=== PATIENT | female | born 1995 | race Caucasian/White ===

== ENCOUNTER → 2018-03-06 21:16 | Outpatient (CLI) | payer MEDICAID, SELFPAY ==
[2018-03-06 21:26] LABS: Absolute Lymphocyte Count 1.11 X10^3/ul (0.83-4.51); Absolute Neutrophil Count 1.9 X10^3/uL (2.0-7.7); Basophil# 0.02 X10^3/uL; Basophil% 0.6 % (0-1); Eosinophil# 0.01 X10^3/uL; Eosinophils% 0.3 % (0-5); Hematocrit 39.3 % (37-47); Hemoglobin 12.3 g/dl (12.0-15.0); Lymphocyte # 1.11 X10^3/ul (4.0); Lymphocyte % 31.7 % (19-41); Mean Corp Hgb Conc 31.3 g/gl (32-36); Mean Corpuscular Hgb 25.7 pg (27.0-32.0); Mean Platelet Vol. 10.6 fl (6.2-12.0); Monocyte# 0.42 X10^3/uL; Neutrophil # 1.94 X10^3/uL (2.7-7.7); Neutrophil % 55.4 % (47-70); Platelet Count 210 K/mm3 (150-450); RBC Distribution Width CV 13.9 % (11.6-14.6); RBC Distribution Width SD 41.4 fl (35.1-43.9); Red Blood Count 4.79 M/mm3 (4.2-5.4); White Blood Count 3.5 K/mm3 (4.4-11.0)
[2018-03-06 21:29] LABS: POSITIVE COUNT NO; POSITIVE DIFFERENTIAL NO; POSITIVE MORPHOLOGY NO
[2018-03-06 22:09] LABS: ALB/GLOB Ratio 1.1 RATIO (0.9-2.4); AST(SGOT) 20 U/L (15-37); Alanine Aminotransfer ALT/SGPT 34 U/L (13-56); Alkaline Phosphatase 51 U/L (45-117); Anion Gap 6 (5-15); BUN 12 mg/dL (7-18); Calcium,Total 8.8 mg/dL (8.5-10.1); Chloride 109 mmol/L (98-107); Creatinine, Serum 0.75 mg/dL (0.55-1.02); EST Glomerular Filtration Rate 104 mL/min (>60); Est Glom Filt Rate - Afr Amer 126 mL/min (>60); Globulin 3.7 g/dL (2.2-4.2); Glucose 87 mg/dL (74-106); Potassium 4.1 mmol/L (3.5-5.1); Protein, Total 7.7 g/dL (6.4-8.2); Sodium Level 141 mmol/L (136-145); T4 Free Direct 1.02 ng/dL (0.76-1.46); Thyroid Stim Hormone (TSH) 1.68 uIU/mL (0.358-3.74)
== END ==
PROVIDERS: Visit Provider Nurse Practitioner
DX: F32.9 Major depressive disorder, single episode, unspecified (principal); F41.9 Anxiety disorder, unspecified
CPT/HCPCS: 80053; 84439; 84443; 84481; 85025

== ENCOUNTER 2018-03-17 09:00 | Outpatient (RCR) | payer MEDICAID, SELFPAY ==
--- NOTE | 2018-03-17 09:05 | BH.SGPN.GN ---
Behaviors/Verbalizations/Mental Status: [Client maintained fair eye contact, appearance disheveled unbathed, motor activity slowed, speech normal rate and soft tone, mood anxious, dysthymic, congruent affect, thoughts linear and intact, no evidence of delusions or hallucinations.] Client Response/Progress/Benefit: [Attentive and providing input to discussion despite reports of being exhausted. Emotion for today is blah as client reports she worked multiple shifts over the weekend with little break and was therefore unable to spend much time with her daughter. Client reports that she feeling overwhelmed and unsupported as she does not have many people to help with her daughter. Stated that she has ?no time to relax or sleep? and is really feeling the effects of this. Group provided support and encouragement which client appeared to benefit from. Limited progress as she reports increasing work hours despite indicating difficulties in managing current responsibilities Continue treatment to prevent decompensation and improve self-care skill application.] Narrative Note: []
--- NOTE | 2018-03-17 10:25 | BH.SGPN.GN ---
Behaviors/Verbalizations/Mental Status: [] Pt eye contact good, casually dressed, motor activity appropriate, speech normal rate and tone, mood anxious, congruent affect, thoughts linear and intact, no evidence of delusions or hallucinations. Client Response/Progress/Benefit: []Pt quiet, listened attentively to others, only contributed to discussion if elicited by therapist. Pt appeared to connect with other peers comments about challenges with following through with goals, despite knowing setting goals is important AEB pt nodding head. Pt stated she struggles with accomplishing goals because of self-doubt and low confidence. Pt appeared engaged when learning about SMART goals as shown by pt taking notes. pt seemed to benefit from rehearsing setting small goals in the moment, appeared to connect importance of setting realistic goals. Narrative Note: []
--- NOTE | 2018-03-20 09:04 | BH.SGPN.GN ---
Behaviors/Verbalizations/Mental Status: [] Pt eye contact poor, casually dressed, motor activity restless, speech soft, mood depressed and anxious, flat affect, thoughts linear and intact, no evidence of delusions or hallucinations. Reviewed client?s symptom tracker, no signs of suicidal ideation, plan, or intent as of today. Client Response/Progress/Benefit: []Client stated can I pass on sharing this morning. Client did identify her emotion to be stressed, but did not elaborate on what was contributing to her emotion. Client did appear to listen attentively to others throughout session. Seemed to benefit from support from peers. Progress could be hindered if continues to not communicate what she is feeling and thinking. Client to continue IOP level of care to decrease depression, improve daily functioning, and prevent decompensation. Narrative Note: []
--- NOTE | 2018-03-20 10:08 | BH.SGPN.GN ---
Behaviors/Verbalizations/Mental Status: [Client maintained good eye contact, casually dressed appearing unbathed and tired, motor activity appropriate, speech normal rate and soft tone, mood depressed, anxious, affect congruent, thoughts linear and logical, no evidence of delusions or hallucinations.] Client Response/Progress/Benefit: [Client responded well to session, attentive throughout ad able to provide to both discussion and activity portions of group. Client appeared to connect with the topic of ?taking action? and discussed waning to be able to feel as though her depression has less of an impact on her life. Client identified things in her life that are holding her back from moving towards mental wellness such as poor self-esteem, lack of emotion, getting her hopes up, poor sleep, and negative thinking. Client stated she wants to take back control over these stressors and symptoms because she wants to be able to learn to love herself more and set a good example for her baby daughter. Client appeared to benefit from identifying stressors and symptoms holding her back and participating in a symbolic activity, AEB increased input and engagement. Client to continue IOP to continue increasing use of thought challenging and communication with supports, as well as to prevent decompensation.] Narrative Note: []
--- NOTE | 2018-03-21 10:39 | BH.NA ---
Physical Data - Vital Signs Pulse Rate: 68 Respiratory Rate: 12 Blood Pressure: 106/70 - Height/Weight Height: 1.63 m Weight:: 58.967 kg Weight in Pounds: 130.0 lbs Current Medication Compliance - Medication Compliance Do you take your medication as prescribed?: Yes Do you need assistance with taking medication?: No Have you had side effects from medication?: No Nutritional History - Appetite Nutritional Instructions:: If client shows signs of a swallowing problem, weight change of 10 pounds or more in the last month, or is on a diabetic diet, the physician will review and request a dietitian consult, as appropriate. All unintentional weight loss will be referred to the physician for decision on need for dietitian consult. Describe your appetite:: Fair Have you noticed a change in your eating habits lately?: Yes - appetite is variable and dependent on work schedule and sleep Functional Assessment - Sleep Pattern Describe any problems with sleeping: Client works 2nd shift and has an . She tries to sleep when the baby does, but due to her work schedule, it is difficult to stay asleep for long periods of time. - Activities Motor Activity:: Functional Sensory/Communication Assess - Hearing Problems Do you have any hearing problems?: Adequate - Communication Problems Do you have difficulty understanding what people are saying?: No Do you have trouble putting your thoughts into words or expressing what you want to say?: No Do people ever have trouble understanding what you say?: No What is your primary language?: [place] Learning Assessment - Learning Barriers Learning Barriers:: Ready to learn Medical Problems/History - Pain Assessment Do you have acute or chronic pain?: No - Female Reproductive Do you think you may be ?: No Number of pregnancies:: 1 Number of children:: 1 Have you reached menopause?: No Do you have any history of breast disease?: No - Family History Family History: Family History (Last Reviewed 03/15/18 @ 11:22 by GORDON Bueno) Sister Bipolar 1 disorder, manic, mild Grandfather Bipolar 1 disorder, manic, mild Other Depression Diabetes Heart disease Mental Status Summary - Mental Status Significant Findings/Observations on Appearance and Mood:: Dayan is A&O x4, cooperative with interview, and is casually dressed. She makes good eye contact. Normal activity. Speech is clear and of normal rate and volume. Mild depression and anhedonia. Mood congruent affect. Logical associations and normal process. No symptoms of delusions. Denies SI, HI, and hallucinations. Passive thoughts of . Good attention and concentration. Suicide Assessment - Suicidal Ideation Are you currently or have you been suicidal in the past?: Yes Suicidal Intentional Rating Scale (SIRS): Suicidal thoughts (past) Physician Notification: If Active suicidal thoughts/Will not contract for safety is checked, contact physician and document in the Physician Notification section below. Past Psychiatric History - MH Treatment Hx Describe (age, circumstance, etc) any past hospitalizations: age 14 Fall Risk Assessment - Age Age: Less than 60 - Mental Status Mental Status: Willing & able to ask for assistance when needed - Physical Status Physical Status: No problems - Impairments Impairments: None - Elimination Elimination: Continent AND independent - Gait or Balance Gait or Balance: Walks independently - Hx of Falls History of falls in the past 6 months: No known history - Medications/Substances Psychotropics:: Antidepressants Medications/substances used within the past 24 hours or ordered to administer: 1-2 of the medications/substances listed above - Total Score Total Points:: 1 Physician Notification - Physician Notification Physician Notified: Yanira Beach Method of Notification: Face to Face Comments: treatment planning recommendations RN Summary of Impressions - Impressions Recommendations: Include psychiatric and medical issues, treatment planning recommendations, and discharge planning needs. - Level of Care How do the client's current symptoms and functional deficits support need for this level of care?: Client presents to IOP with increased symptoms of her depression that are affecting her ADL's. She does have a significant history of MDD and has had SA x4. Client had a baby girl in October 2017. She endorses sleep problems, stress about her job, finances, and housing. Client specifically denies any SI and inclination to harm her baby, but she is having passive thoughts of . IOP will provide her socialization and support to promote gains and prevent further decompensation.
--- NOTE | 2018-03-21 11:36 | BH.NA_ITS ---
Physical Data - Vital Signs Pulse Rate: 68 Respiratory Rate: 12 Blood Pressure: 106/70 - Height/Weight Height: 1.63 m Weight:: 58.967 kg Weight in Pounds: 130.0 lbs Current Medication Compliance - Medication Compliance Do you take your medication as prescribed?: Yes Do you need assistance with taking medication?: No Have you had side effects from medication?: No Nutritional History - Appetite Nutritional Instructions:: If client shows signs of a swallowing problem, weight change of 10 pounds or more in the last month, or is on a diabetic diet, the physician will review and request a dietitian consult, as appropriate. All unintentional weight loss will be referred to the physician for decision on need for dietitian consult. Describe your appetite:: Fair Have you noticed a change in your eating habits lately?: Yes - appetite is variable and dependent on work schedule and sleep Functional Assessment - Sleep Pattern Describe any problems with sleeping: Client works 2nd shift and has an . She tries to sleep when the baby does, but due to her work schedule, it is di fficult to stay asleep for long periods of time. - Activities Motor Activity:: Functional Sensory/Communication Assess - Hearing Problems Do you have any hearing problems?: Adequate - Communication Problems Do you have difficulty understanding what people are saying?: No Do you have trouble putting your thoughts into words or expressing what you want to say?: No Do people ever have trouble understanding what you say?: No What is your primary language?: Citizen Of [place] Learning Assessment - Learning Barriers Learning Barriers:: Ready to learn Medical Problems/History - Pain Assessment Do you have acute or chronic pain?: No - Female Reproductive Do you think you may be ?: No Number of pregnancies:: 1 Number of children:: 1 Have you reached menopause?: No Do you have any history of breast disease?: No - Family History Family History: Family History (Last Reviewed 03/15/18 @ 11:22 by GORDON Bueno) Sister Bipolar 1 disorder, manic, mild Grandfather Bipolar 1 disorder, manic, mild Other Depression Diabetes Heart disease Mental Status Summary - Mental Status Significant Findings/Observations on Appearance and Mood:: Dayan is A&O x4, cooperative with interview, and is casually dressed. She makes good eye contact. Normal activity. Speech is clear and of normal rate and volume. Mild depression and anhedonia. Mood congruent affect. Logical associations and normal process. No symptoms of delusions. Denies SI, HI, and hallucinations. Passive thoughts of . Good attention and concentration. Suicide Assessment - Suicidal Ideation Are you currently or have you been suicidal in the past?: Yes Suicidal Intentional Rating Scale (SIRS): Suicidal thoughts (past) Physician Notification: If Active suicidal thoughts/Will not contract for safety is checked, contact physician and document in the Physician Notification section below. Past Psychiatric History - MH Treatment Hx Describe (age, circumstance, etc) any past hospitalizations: age 14 Fall Risk Assessment - Age Age: Less than 60 - Mental Status Mental Status: Willing & able to ask for assistance when needed - Physical Status Physical Status: No problems - Impairments Impairments: None - Elimination Elimination: Continent AND independent - Gait or Balance Gait or Balance: Walks independently - Hx of Falls History of falls in the past 6 months: No known history - Medications/Substances Psychotropics:: Antidepressants Medications/substances used within the past 24 hours or ordered to administer: 1-2 of the medications/substances listed above - Total Score Total Points:: 1 Physician Notification - Physician Notification Physician Notified: Yanira Beach Method of Notification: Face to Face Comments: treatment planning recommendations RN Summary of Impressions - Impressions Recommendations: Include psychiatric and medical issues, treatment planning recommendations, and discharge planning needs. - Level of Care How do the client's current symptoms and functional deficits support need for this level of care?: Client presents to [facility] with increased symptoms of her depression that are affecting her ADL's. She does have a significant history of MDD and has had SA x4. Client had a baby girl in October 2017. She endorses sleep problems, stress about her job, finances, and housing. Client specificall y denies any SI and inclination to harm her baby, but she is having passive thoughts of . [facility] will provide her socialization and support to promote gains and prevent further decompensation.
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
--- NOTE | 2018-03-21 12:47 | BH.DR.ITP ---
Initial Treatment Plan - Patient Information Visit Information: ADMISSION DATE: EXPECTED LOS: 4-6 weeks Diagnoses:: Major depressive disorder recurrent severe. PTSD - Problems/Symptoms Problem #1:: Depression/ mood sxs Symptom:: Sad mood, anhedonia, difficulty concentrating, biologic disruption of sleep and appetite, suicidal ideation Problem #2:: Anxiety Symptom:: Rumination, intrusive traumatic memories, avoidance
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
--- NOTE | 2018-03-21 15:12 | BH.MDN ---
Multi-Disciplinary Note - Note 45-min Individual Time Started:: 11:11 Date: 03/21/18 Purpose of session/treatment goals addressed:: The purpose of this session was to determine how Client has been adjusting to group following her first two days in IOP tx as well as begin establishing rapport. Another goal was to assess Client perception of current stressors, symptoms, supports, and means for coping, as well as work with client on beginning to establish treatment goals. Eye Contact:: Good Motor Activity:: Appropriate Appearance:: Casual Speech:: Appropriate, Soft Mood:: Anxious, Dysthymic Affect:: Congruent Thoughts:: Linear, Logical, No evidence of hallucinations/delusions noted Staff Interventions:: The purpose of this session was to determine how Client has been adjusting to group following her first two days in IOP tx as well as begin establishing rapport. Another goal was to assess Client perception of current stressors, symptoms, supports, and means for coping, as well as work with client on beginning to establish treatment goals. Client Response:: Client open to meeting with this therapist and responded well to session. She shared that initially the group environment was a bit overwhelming as she has never been to more than one counseling session in her life. Client further noted feeling she will be able to gain important skills and is beginning to feel more comfortable now that she has started to adjust and knows what to expect. Client discussed feeling exhausted today explaining that she has been struggling to find any downtime to relax since returning to work. Client indicated that between caring for her daughter and working two jobs she barely has anytime to do much more than sleep. She discussed stressors related to both occupational stress and difficulties in having a . CLient identified that although her boyfriend and his mother are very supportive, she struggles with feeling anxious when she is away from her daughter. Client shared recently getting a new head knitting machine fixer due to not trusting her previous sitter, CLient's non-biological aunt, to care for her daughter. She went on to describe experiencing frequent worry and panic related symptoms during times she is away from her daughter which has caused some difficulties in remaining focused while at work. When asked about current means for managing stressors or coping with frustrations, Client shared I don't...I just push everything down and pretend like nothing is wrong. She reflected that this has begun to negatively impact her mental and emotional health and wellbeing and verbalized allowing her stressors to continue to build until I snap. CLient was upon to discussing potential treatment goals with this therapist and identified improving boundaries, increasing self-care, and developing anxiety and stress management coping skills as her main priorities at this time. Risks/Concerns:: No risks or concerns noted. Client denies any active SI, plan, or intent as of this date 03/21/18. Progress Toward Goals/Plan:: Client second day in IOP program, therefore minimal progress able to be made. She expressed some apprehension however is hopeful that she will be able to gains the skills needed for successful improvement in management of mental health symptoms. Client was able to work with therapist on identifying potential treatment goals and indicated wanting to focus on coping skill development and managing current stressors. Recommended continued IOP to began prevent decompensation, and increase insight into mental health symptoms and healthy coping mechanisms. Time Stopped:: 12:00
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
--- NOTE | 2018-04-03 15:41 | BH.MTP_ITS ---
Master Treatment Plan - Patient Information Program Physician:: Monica Beach Primary Therapist:: VISH Su - Psychiatric Diagnoses Psychiatric Diagnoses:: Major depressive disorder recurrent severe. PTSD Diagnosis Code(s):: F33.2, F43.1 - Estimated LOS Estimated LOS (in weeks):: 6 Problem/Goal #1 - Problem/Goal #1 Stated Goal:: Client will decrease depressive symptoms, isolation, agitation, and passive suicidal ideation due to Major Depressive Disorder through Intensive Outpatient Program. Description of Barriers: Client has a significant trauma hx and reports no previous mental health treatment, she additionally reports increased responsibilities associated with work and caring for her daughter, CLient is 5 months and indicates experiencing significant anxiety and depression since giving , she has limited support, limited healthy coping skills in place, reports little time for self related to difficulty prioritizing , and multiple psychosocial stressors including financial, occupational, and family stress. Functional Impact: Client reports that recent increases in passive thoughts of and intrusive thoughts causing anxiety impact her on a daily basis. Depression leads to increased isolation, anhedonia, and lack self-care. Client reports poor concentration and increased rumination impacting her ability to function at work and resulting in increased isolation and avoidance. Goal Relevant Strengths/Supports: Client is intelligent, resilient, has a good sense of humor, and is open to trying new strategies for managing mental health symptoms. She reports strong motivation to improve current means of coping and better manage mental health symptoms. Client reports her boyfriend and his family are supportive and are her biggest sources of motivation. - Objectives Objective #1 Stated Objective: Client will identify at least 2 warning signs and triggers leading to increased depressive thinking and passive SI, as well as will identify and replace 2-3 negative thinking patterns that mediate feelings of hopelessness and helplessness. Client will additionally identify 3-4 coping skills to use to help avoid suicidal thoughts/ideation. Interventions: Therapist will help client apply group concepts to help client better understand self, as well as ability to cope with everyday challenges and struggles, and communicate needs more effectively with supports. Therapist will also provide client with education on cognitive distortions, mistaken beliefs, and identifying and combating negative self-talk. Therapist will help pt. explore connection between thoughts, feelings, and actions. Discharge Criteria: Client will be able to identify 2-3 warning signs and trigger leading to increased negative thinking as well as current negative thinking patterns and be able to effectively stop, challenge, or cope with those negative thoughts. Target Date: 05/09/18 Review Date: 04/18/18 Problem/Goal #2 - Problem/Goal #2 Stated Goal:: Stabilize anxiety level while increasing ability to function and decreasing ruminative thoughts on a daily basis through Intensive Outpatient Program. Description of Barriers: Client has a significant trauma hx and reports no previous mental health treatment, she additionally reports increased responsibilities associated with work and caring for her daughter, CLient is 5 months and indicates experiencing significant anxiety and depression since giving , she has limited support, limited healthy coping skills in place, reports little time for self related to difficulty prioritizing , and multiple psychosocial stressors including financial, occupational, and family stress. Functional Impact: Client reports that recent increases in passive thoughts of and intrusive thoughts causing anxiety impact her on a daily basis. Depression leads to increased isolation, anhedonia, and lack self-care. Client reports poor concentration and increased rumination impacting her ability to function at work and resulting in increased isolation and avoidance. Goal Relevant Strengths/Supports: Client is intelligent, resilient, has a good sense of humor, and is open to trying new strategies for managing mental health symptoms. She reports strong motivation to improve current means of coping and better manage mental health symptoms. Client reports her boyfriend and his family are supportive and are her biggest sources of motivation. - Objectives Objective #1 Stated Objective: Client will identify 2-3 triggers and 2-3 new ways to navigate stressful situations and worries in order to improve emotion regulation and decrease ruminating thoughts which cause anxiety and irritability. Interventions: Therapist will help client process triggers to increased symptoms , and then identify ways to manage anxious feelings and thoughts. Therapist will use motivational interviewing, and help client make changes in life to encourage rational problem solving and stress management behavior, ways to manage emotions in stressful situations, and feel more confident in self. Discharge Criteria: Client will have met this goal when can use 1-2 coping strategies when feeling overwhelmed or anxious and reports an overall reduction in sx of anxiety and rumination as evidenced by a reduction in DSM Cross- cutting scores. Target Date: 05/09/18 Review Date: 04/18/18 Objective #2 Stated Objective: Client will learn and implement 2-3 calming skills to reduce overall anxiety and emotion dysregulation and improve management of anxiety symptoms and better stabalize mood. Interventions: Therapist will teach client calming/relaxation skills and assign client homework which practices relaxation skills daily. Discharge Criteria: Client will have achieved this goal when can verbalize at least 2 calming skills and implement those skills. Target Date: 05/09/18 Review Date: 04/18/18
[2018-04-25 16:20] VITALS: BP 106/70; PULSE 68; RESP 12
== END 2018-03-21 23:59 ==
LOC: BHIOP 09:00
PROVIDERS: Visit Provider Psychiatry & Neurology Psychiatry
DX: F33.2 Major depressive disorder, recurrent severe without psychotic features (principal); F43.10 Post-traumatic stress disorder, unspecified; F41.9 Anxiety disorder, unspecified
CPT/HCPCS: 99204; H0035; H2012; H2020; T1002; 90834

== ENCOUNTER 2018-03-27 09:00 | Outpatient (RCR) | payer MEDICAID, SELFPAY ==
[2018-03-22 01:57] VITALS: BP 106/70; PULSE 68; RESP 12
--- NOTE | 2018-03-27 09:07 | BH.SGPN.GN ---
Behaviors/Verbalizations/Mental Status: []Eye contact is good. Motor activity is appropriate. Appearance is casual, disheveled. Speech is Appropriate. Mood is dysthymic. Affect is congruent. Thoughts are linear and logical. No evidence of psychosis. Reviewed daily check in sheet and pt denies any suicidal ideations, plan, or intent. Client Response/Progress/Benefit: []Pt was an attentive and semi-active participant in group discussion. Emotion for today is ?exhausted?. Shared that she has had little sleep as her daughter is teething and has not been sleeping well as a result. Pt receptive of support provided by group. She reflected upon learning about her boss? recent cancer diagnosis which has additionally impacted her mood and resulted in increased negative thinking and sadness. Shared taking time to try and focus on the positives which was somewhat helpful. Progress continues to be impacted by pt overwhelming scheduled which does not allow fo her to take time to work on self-care. Benefited from group support, encouragement, and feedback. Will continue IOP tx to prevent decompensation, increase mood stability, and reduce mental health sx severity. Narrative Note: []
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
--- NOTE | 2018-03-31 09:05 | BH.SGPN.GN ---
Behaviors/Verbalizations/Mental Status: [Client maintained good, consistent eye contact, casually and comfortably dressed, motor activity WNL, speech normal rate and tone, mood anxious, euthymic, affect congruent, thoughts linear and logical, no evidence of delusions or hallucinations. Therapist reviewed clients symptom tracker to assess for intensity of mental health symptoms and identify risk for suicide. No signs of suicidal ideation, plan, or intent to date.] Client Response/Progress/Benefit: [Client responded positively to session and was more actively engaged in discussion than previous groups. She openly shared her thoughts, feelings, and stressors with the group as well as provided positive feedback to fellow supports. Client discussed having had a difficult weekend as she had to take her daughter to the Emergency Dept. on Saturday and had also dealt with some some increased relationship tension with her boyfriend and feeling unsupported and uncared for. Client benefited from being challenged to identify the the positives in the weekend as this allowed for her to see her own progress in her ability to manage these stressors and give herself time to relax and cope rather than further escalating. Client displaying significant progress in her ability to identify and begin to challenge negative thinking as well as is becoming more engaged in the tx process. Client recommended continued IOP tx to maintain stability, improve communication and self-care, as well as continue to work on thought challenging. ] Narrative Note: []
--- NOTE | 2018-03-31 10:20 | BH.SGPN.GN ---
Behaviors/Verbalizations/Mental Status: []Client alert and oriented, dress casual and appeared well groomed. Eye contact fair. Motor activity appropriate. Speech soft. Affect constricted, mood depressed. Thoughts linear, logical, no signs of hallucinations or delusions. Client Response/Progress/Benefit: []client responded well to session, quiet but participating when prompted. Client reported mental health, society, and negative thinking can make a person view challenging situations as impossible. Client stated having an impossible mindset can make a person lack motivation to change and can keep someone feeling powerless. Client engaged in an activity that at first appeared impossible, but with different ideas and communication can be solved. Client was quiet during the activity, but she was engaged as evidenced by participation. Client appeared to benefit from increasing awareness of how the impossible mindset can impact mental health. Progress variable as client appears to be increasing awareness, but often is quiet during sessions so it unclear if she is applying coping skills learned in group.
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
--- NOTE | 2018-04-03 14:32 | BH.MDN ---
Multi-Disciplinary Note - Note 60-min Individual Time Started:: 08:28 Date: 04/03/18 Purpose of session/treatment goals addressed:: Purpose of this session was to assess Client current symptoms, stressors, and progress towards treatment goals. Another purpose was to discuss Client ongoing ruminations and intrusive thoughts impacting ability to regulate mood and introduce concepts of Cognitive Restructuring. Eye Contact:: Good Motor Activity:: Appropriate Appearance:: Disheveled - Client unbathed and emitting a slight body odor. hair unwashed. Speech:: Appropriate Mood:: Anxious, Dysthymic Affect:: Congruent Thoughts:: Linear, Logical, No evidence of hallucinations/delusions noted Staff Interventions:: Therapist used active listening and open-ended questions to explore client's current stressors, barriers, and perceived progress towards treatment goals. Therapist used reflective listening and encouragement to provide support and as Client discussed frustrations. Aided Client in identifying current barriers contributing to ongoing symptoms and brainstormed strategies for improving self-care. Provided psychoeducation on impact between thoughts, feelings, and behaviors as well as introduced and discussed various Cognitive restructuring and thought challenging techniques. Client Response:: Client reports that she is finding the IOP program increasingly helpful and is doing well to improve overall engagement levels in both group and individual settings. She discussed ongoing difficulties in managing her emotions and indicates feeling as though she is set off by the smallest things. Client went on to further elaborate on various occasions in which a small stressor caused her to feel increased anxiety, sadness, or irritability. Client expressed beliefs that lack of sleep may be contributing to her difficulties with mood regulation as she has consistently been getting no more than 3-4 hours of sleep a night. Client noted that her daughter has been having difficulties sleeping through the night which has kept Client from sleeping. Client went on to report that she has not been showering as often as she would like or caring for her basic needs in general. She did well to understand information discussed regarding the triangular relationship between thoughts, feelings, and behaviors. CLient expressed recognizing the benefits that caring for her physical health could have on improving motivation and self-esteem. Client identified goal of beginning to make sure she is showering daily. She additionally identified difficulties in challenging negative thoughts, particularly when in the work environment. CLient expressed trying to challenge these thoughts by replacing each negative with at least two positives but has not found this to be helpful every time. Client receptive of learning additional thought challenging techniques to try utilizing when having a negative or distorted thought. She indicated connecting with identifying the evidence for and against a thought. Client indicates plans to try applying these skills outside of treatment setting. Risks/Concerns:: No risks or concerns at this time. CLient denies any active suicidal ideation, plan, or intent as of 04/03/18. SHe identifies her daughter as a major motivation to live and is future oriented indicating plans to attend work this evening and goals to save for a new apartment. Progress Toward Goals/Plan:: Limited progress due to Client struggling to find time to prioritize her self-care or begin trying to engage in relaxation and calming activities to better relieve stress. This may be acting as a barrier to Client ability to better regulate her emotions and reduce negative thinking. CLient continues to struggle with getting regular sleep, reports increased mood swings and irritability, and currently indicates poor maintenance of hygiene as she is not showering regularly. CLient continues to express motivation to improve mental health and ability to cope though is reluctant to seek outside supports. She is doing well to actively attempt identifying and challenging negative thought patterns; however, is experiencing some difficulties in finding thought replacement as effective. CLient open to trying alternative thought challenging strategies. Recommended continues IOP tx to prevent decompensation, stabilize mood, and improve daily functioning. Time Stopped:: 09:20
--- NOTE | 2018-04-03 15:40 | BH.MDN_ITS ---
Multi-Disciplinary Note - Note 60-min Individual Time Started:: 08:28 Date: 04/03/18 Purpose of session/treatment goals addressed:: Purpose of this session was to assess Client current symptoms, stressors, and progress towards treatment goals. Another purpose was to discuss Client ongoing ruminations and intrusive thoughts impacting ability to regulate mood and introduce concepts of Cognitive Restructuring. Eye Contact:: Good Motor Activity:: Appropriate Appearance:: Disheveled - Client unbathed and emitting a slight body odor. hair unwashed. Speech:: Appropriate Mood:: Anxious, Dysthymic Affect:: Congruent Thoughts:: Linear, Logical, No evidence of hallucinations/delusions noted Staff Interventions:: Therapist used active listening and open-ended questions to explore client's current stressors, barriers, and perceived progress towards treatment goals. Therapist used reflective listening and encouragement to provide support and as Client discussed frustrations. Aided Client in identifying current barriers contributing to ongoing symptoms and brainstormed strategies for improving self-care. Provided psychoeducation on impact between thoughts, feelings, and behaviors as well as introduced and discussed various Cognitive restructuring and thought challenging techniques. Client Response:: Client reports that she is finding the IOP program increasingly helpful and is doing well to improve overall engagement levels in both group and individual settings. She discussed ongoing difficulties in managing her emotions and indicates feeling as though she is ?set off by the smallest things?. Client went on to further elaborate on various occasions in which a small stressor caused her to feel increased anxiety, sadness, or irritability. Client expressed beliefs that lack of sleep may be contributing to her difficulties with mood regulation as she has consistently been getting no more than 3-4 hours of sleep a night. Client noted that her daughter has been having difficulties sleeping through the night which has kept Client from sleeping. Client went on to report that she has not been showering as often as she would like or caring for her basic needs in general. She did well to understand information discussed regarding the triangular relationship between thoughts, feelings, and behaviors. CLient expressed recognizing the benefits that caring for her physical health could have on improving motivation and self- esteem. Client identified goal of beginning to make sure she is showering daily. She additionally identified difficulties in challenging negative thoughts , particularly when in the work environment. CLient expressed trying to challenge these thoughts by replacing each negative with at least two positives but has not found this to be helpful every time. Client receptive of learning additional thought challenging techniques to try utilizing when having a negative or distorted thought. She indicated connecting with identifying the evidence for and against a thought. Client indicates plans to try applying these skills outside of treatment setting. Risks/Concerns:: No risks or concerns at this time. CLient denies any active suicidal ideation, plan, or intent as of 04/03/18. SHe identifies her daughter as a major motivation to live and is future oriented indicating plans to attend work this evening and goals to save for a new apartment. Progress Toward Goals/Plan:: Limited progress due to Client struggling to find time to prioritize her self-care or begin trying to engage in relaxation and calming activities to better relieve stress. This may be acting as a barrier to Client ability to better regulate her emotions and reduce negative thinking. CLient continues to struggle with getting regular sleep, reports increased mood swings and irritability, and currently indicates poor maintenance of hygiene as she is not showering regularly. CLient continues to express motivation to improve mental health and ability to cope though is reluctant to seek outside supports. She is doing well to actively attempt identifying and challenging negative thought patterns; however, is experiencing some difficulties in finding thought replacement as effective. CLient open to trying alternative thought challenging strategies. Recommended continues IOP tx to prevent decompensation, stabilize mood, and improve daily functioning. Time Stopped:: 09:20
--- NOTE | 2018-04-04 09:00 | BH.SGPN.GN ---
Behaviors/Verbalizations/Mental Status: []Client alert and oriented, neatly dressed and groomed-showered. Eye contact fair. Motor activity slowed. Speech within normal limits. Affect congruent, appearing tearful at one point, mood apathetic. Thoughts linear, logical, no signs of hallucinations or delusions. Reviewed clients symptom tracker, no risk for suicidal ideation, plan, or intent as of 04/04/18. Client Response/Progress/Benefit: []Client responded well to session, reporting fatigue, but active participant. Client reports feeling exhausted today due to working long hours and her 5-month old baby not sleeping well. Client stated she has to work today so she will not be able to take a nap after group. The group attempted to give client ideas to promote self-care and sleep. Client was receptive to the idea of increasing her social supports, so someone can watch the baby and let client sleep. Client accomplished her goal of taking a shower which is a positive. Client appeared to benefit from gaining supportive statements from peers. Progress noted as client was able to accomplish her goal this week. Client continues to struggle with negative thinking and managing emotions.
--- NOTE | 2018-04-04 10:18 | BH.SGPN.GN ---
Behaviors/Verbalizations/Mental Status: [Client maintained good eye contact, casually dressed - jeans and a eligio-shirt, hair cleaned and well tended to, motor activity WNL, speech normal rate and tone - mood euthymic, affect congruent, thoughts linear and logical, no evidence of delusions or hallucinations.] Client Response/Progress/Benefit: [Client did well to remain an active and positive participant throughout, providing more input than usual. Client did well to maintain attentive throughout discussion on social supports and benefitted from discussing both the benefits of healthy supports and negative impact a lack of support can have on mental health. Client took on an active role in the activity portion and was able to work with fellow participants to overcome communication issues or misunderstandings to achieve the activities goal. Client displaying progress in her ability to open up in discussion and internalize skills learned as well as work towards weekly tx goals.] Narrative Note: []
--- NOTE | 2018-04-04 11:19 | BH.SGPN.GN ---
Behaviors/Verbalizations/Mental Status: [Client maintained good eye contact, casually dressed in jeans and a hoodie, motor activity WNL, mood euthymic, positive - indicated feeling tired, affect congruent, thoughts linear and logical, no evidence of delusions or hallucinations.] Client Response/Progress/Benefit: [Client was actively engaged in session and continues to make progress in levels of input provided as well as increased ability to make connections between information discussed and her mental health and wellness. CLient appeared to benefit from the reflection discussion covering barriers in seeking social supports and means of improving supports accessed. Expressed a willingness to communicate with her boyfriend a need to set aside time for her own self-care and set a goal for doing so over the weekend. ] Narrative Note: []
--- NOTE | 2018-04-07 09:02 | BH.SGPN.GN ---
Behaviors/Verbalizations/Mental Status: []Client alert and oriented, hygiene fair, casual dress. Eye contact good. Motor activity appropriate. Speech within normal limits. Affect incongruent as shown by client reporting anxiety and burnout but smiling, mood anxious and overwhelmed. Thoughts linear, logical, no signs of hallucinations or delusions. Reviewed clients symptom tracker, no risk for suicidal ideation, plan, or intent as of 04/07/18. Client Response/Progress/Benefit: []Client responded well to session, active participant. Client reports feeling tired and worn thin as she described her weekend as very up and down. Client shared she advocated for her needs and told her boyfriend to watch the baby so client could nap. Client reported I really needed it, but I slept through the shift of my second job. Client shared she did not have any negative consequences as a result of missing her shift. Client stated she continues to struggle with regulating her emotions and managing her mood. Client reported a coworker told her she did something incorrectly and client cried for a few hours. With further exploration, client able to recognize there are other factors contributing to her lack of emotional regulation including working two jobs, lack of sleep, being a mother, and mental health. Client seemed to benefit from gaining emotional support from peers. Progress noted as client communicated her needs this weekend, but she continues to struggle with regulating emotions.
--- NOTE | 2018-04-07 10:20 | BH.SGPN.GN ---
Behaviors/Verbalizations/Mental Status: [] Pt eye contact good, casually dressed, motor activity appropriate, speech normal rate and tone, mood dysthymic, constricted affect, thoughts linear and intact, no evidence of delusions or hallucinations. Client Response/Progress/Benefit: []Pt passive participant, listened attentively to others, limited contributions to discussion. Pt appeared to connect with others comments about one's thought patterns being able to create new problems or make current problems worse AEB pt shaking head. Pt attentive during discussion about a problem solving method. Pt reported she has difficulty identifying the barriers that get in the way of her solving problems. Pt recognized it's important to try different solutions because likely won't solve a problem on the first try. Pt seemed to benefit from learning about a problem solving method and rehearsing problem solving in the moment. Pt to continue IOP level of care to improve mood stability and prevent decompensation. Narrative Note: []
--- NOTE | 2018-04-10 09:32 | BH.MDN ---
Multi-Disciplinary Note - Note 30-min Individual Time Started:: 08:28 Date: 04/10/18 Purpose of session/treatment goals addressed:: Purpose of session was to discuss Client symptoms, stressors, and concerns regarding managing mental health triggers. Another purpose was to review progress in treatment, complete discharge, and connect client with resources. Eye Contact:: Fair, Other - tearful throughout discussion Motor Activity:: Appropriate Appearance:: Disheveled - hair dirty, client unbathed, wearing sweats Speech:: Soft Mood:: Anxious, Depressed Affect:: Congruent Thoughts:: Linear, Logical, No evidence of hallucinations/delusions noted Staff Interventions:: Therapist used reflective listening and empathic responses as Client discussed current stressors and concepts related to treatment progress and ability to manage mental health symptoms. Therapist asked open ended questions to gather additional information and elicit client's thoughts about her progress since entering [facility] and request for discharge. Collaborated with client to identify strategies that can help her maintain success following discharge and discussed options regarding counseling and employment services post discharge. Provided support by using active listening and validating emotions. Client Response:: Client willing to come in early to meet with this therapist prior to group, as previously established. She was quiet upon meeting and indicated feeling both exhausted and upset. Client went on to share feeling as though she would no longer be able to remain in the IOP program due to feeling uncomfortable in the group setting. CLient willing to further process her concerns and indicated that she did not feel as though she could connect with others in the group. She expressed fearing she would be unable to make progress or open up to the group due to being worried about judgement from fellow participants. CLient and therapist discussed potential means for improving Client comfort levels in group setting; however, Client indicates wanting to pursue counseling services on an individual outpatient basis at this time. CLient reports knowing the importance of continuing with counseling on an outpatient basis and was receptive of referral information to [facility] and [facility] as Client would prefer to seek treatment outside of the [facility]. Client indicates plans to seek employment resources from [email or web address] at [facility] in order to find employment that would be less stressful and allow increased time to spend with her daughter. Client identified strategies to help her continue to make progress in managing mental health symptoms as including: Reducing unneccessary responsibilities, finding time to prioritize self-care, communicate thoughts and feelings with supports, and continue to apply reframing and thought challenging strategies. Risks/Concerns:: Client is receptive of following-up with aftercare services on an individual outpatient basis and is future oriented. She denies suicidal ideation, plan or intention to date, 04/10/18. Progress Toward Goals/Plan:: Client demonstrated progress with increased awareness of factors contributing to depressive and anxious symptoms as well as improved ability to begin identifying and challenging distorted thoughts. CLient reported feeling as though she is beginning to improve in her ability to reframe negative or anxious thoughts which has improved client ability to regulate emotions. She indicates ongoing difficulties in managing overwhelming stress which has resulted in continued difficulties symptoms of anxiety and depression. CLient did well to make progress in improved levels of awareness of her warning signs, triggers, and common distorted thoughts. Client agreeable to follow up with counseling on an individual outpatient basis. Time Stopped:: 08:59
--- NOTE | 2018-04-10 14:30 | BH.DS ---
Discharge Summary - Demographics Date of Admission:: 03/21/18 Discharge Date: 04/10/18 Discharge Diagnoses:: Major depressive disorder recurrent severe F 33.2 () / rule out bipolar 2 disorder. PTSD. Anxiety unspecified Reason for Discharge:: Client request to be discharge from IOP program at this time. Client indicates requesting discharge due to not feeling comfortable in a group environment or feeling comfortable with opening up about current mental health stressors. Client receptive of continuing with counseling services on an outpatient basis and willing to be given referral information for outpatient individual counseling available. Client provided counseling services for [facility] and [facility] in [place], [place] as Client indicated not wanting referal information for counseling in the [facility]. - Treatment Progress During Treatment & Response: Client showed intermittent progress while in treatment as she was unable to fully meet toward treatment goals. At time of discharge Client was still endorsing symptoms of both depression and overwhelming stress causing anxiety including; anhedonia as well as ruminative and negative thinking. Despite difficulties in managing ongoing mental health symptoms, Client did display progress with increasing insights and understand of her own mental health as well as the importance of identifying and applying healthier means of coping and stress reduction in daily life. CLient did well to make progress in improved levels of awareness of her warning signs, triggers, and common distorted thoughts. She expressed beginning to recognize improvements in her ability to use reframing and positive replacements for negative thoughts. Client additionally reported making progress in identifying and communicating her needs to supports to prevent from becoming further overwhelmed or stressed and has begun making small strides towards better prioritizing her own self-care needs. This has been evidenced by client identifying potential stressors she may reduce or remove from her stress load and improved communication with her boyfriend for help with their new born daughter. Overall, client seemed to respond well to treatment environment as she was observed as providing supportive feedback and encouragement to peers as well as active engagement in activity portions of the groups. Client attendance remained consistent and she was open to regularly meeting individually with therapist. Client appeared receptive to trying new coping skills but reported difficulty in implementing the skills into clients daily life. Client was receptive to following up with outpatient therapists. Issues Still to be Addressed:: Client did not fully achieve her treatment goals due to requesting discharge prior to planned discharge date. Client would therefore benefit from continued work on ongoing psychoeducation regarding trauma and depression, as well as focus on improving awareness of triggers and warning signs, and challenging negative thoughts. Client has begun to display improvement in levels of awareness regarding maladaptive coping skills and secondary emotions such as irritability, isolation, and poor self-care and hygiene. Client could also continue to benefit from ongoing work on improving healthy supports and implementing boundaries and prioritization of her own needs regarding the number of responsibilities client is balancing. Client would do well to focus on improving utilization of healthy coping skills learned in individual and group sessions to reduce isolation, anxiety, and depressive symptoms. Client can continue to benefit from communicating with her supports and setting small goals for increasing stress management skills. Discharge Recommendations/Instructions:: Client recommended to follow up with individual outpatient therapy and given referral resources to [facility]. Client additionally given local resources and information for the [employer] program in [facility] as well as the [employer] resources program in the [facility] in order to recieve career counceling services and employment support. Client given referal information for [facility] in [place] to recieve psychiatry services and is recommended to continue to follow-up with PCP for ongoing medication management until able to establish outpatient psychiatry services. Discharge Handout: Complete Discharge Handout with client on aftercare options and continuity of care.
--- NOTE | 2018-04-11 09:23 | BH.DS_ITS ---
Discharge Summary - Demographics Date of Admission:: 03/21/18 Discharge Date: 04/10/18 Discharge Diagnoses:: Major depressive disorder recurrent severe F 33.2 ( ) / rule out bipolar 2 disorder. PTSD. Anxiety unspecified Reason for Discharge:: Client request to be discharge from IOP program at this time. Client indicates requesting discharge due to not feeling comfortable in a group environment or feeling comfortable with opening up about current mental health stressors. Client receptive of continuing with counseling services on an outpatient basis and willing to be given referral information for outpatient individual counseling available. Client provided counseling services for [facility] and [facility] in [place], [place] as Client indicated not wanting referal information for counseling in the [facility]. - Treatment Progress During Treatment & Response: Client showed intermittent progress while in treatment as she was unable to fully meet toward treatment goals. At time of discharge Client was still endorsing symptoms of both depression and overwhelming stress causing anxiety including; anhedonia as well as ruminative and negative thinking. Despite difficulties in managing ongoing mental health symptoms, Client did display progress with increasing insights and understand of her own mental health as well as the importance of identifying and applying healthier means of coping and stress reduction in daily life. CLient did well to make progress in improved levels of awareness of her warning signs, triggers , and common distorted thoughts. She expressed beginning to recognize improvements in her ability to use reframing and positive replacements for negative thoughts. Client additionally reported making progress in identifying and communicating her needs to supports to prevent from becoming further overwhelmed or stressed and has begun making small strides towards better prioritizing her own self-care needs. This has been evidenced by client identifying potential stressors she may reduce or remove from her stress load and improved communication with her boyfriend for help with their new born daughter. Overall, client seemed to respond well to treatment environment as she was observed as providing supportive feedback and encouragement to peers as well as active engagement in activity portions of the groups. Client attendance remained consistent and she was open to regularly meeting individually with therapist. Client appeared receptive to trying new coping skills but reported difficulty in implementing the skills into client?s daily life. Client was receptive to following up with outpatient therapists. Issues Still to be Addressed:: Client did not fully achieve her treatment goals due to requesting discharge prior to planned discharge date. Client would therefore benefit from continued work on ongoing psychoeducation regarding trauma and depression, as well as focus on improving awareness of triggers and warning signs, and challenging negative thoughts. Client has begun to display improvement in levels of awareness regarding maladaptive coping skills and secondary emotions such as irritability, isolation, and poor self-care and hygiene. Client could also continue to benefit from ongoing work on improving healthy supports and implementing boundaries and prioritization of her own needs regarding the number of responsibilities client is balancing. Client would do well to focus on improving utilization of healthy coping skills learned in individual and group sessions to reduce isolation, anxiety, and depressive symptoms. Client can continue to benefit from communicating with her supports and setting small goals for increasing stress management skills. Discharge Recommendations/Instructions:: Client recommended to follow up with individual outpatient therapy and given referral resources to [facility] and [facility]. Client additionally given local resources and information for the [employer] program in [facility] as well as the [employer] resources program in the [facility] in order to recieve career counceling services and employment support. Client given referal information for [facility] in [place] to recieve psychiatry services and is recommended to continue to follow-up with PCP for ongoing medication management until able to establish outpatient psychiatry services. Discharge Handout: Complete Discharge Handout with client on aftercare options and continuity of care.
--- NOTE | 2018-04-11 14:40 | BH.MDN_ITS ---
Multi-Disciplinary Note - Note 30-min Individual Time Started:: 08:28 Date: 04/10/18 Purpose of session/treatment goals addressed:: Purpose of session was to discuss Client symptoms, stressors, and concerns regarding managing mental health triggers. Another purpose was to review progress in treatment, complete discharge, and connect client with resources. Eye Contact:: Fair, Other - tearful throughout discussion Motor Activity:: Appropriate Appearance:: Disheveled - hair dirty, client unbathed, wearing sweats Speech:: Soft Mood:: Anxious, Depressed Affect:: Congruent Thoughts:: Linear, Logical, No evidence of hallucinations/delusions noted Staff Interventions:: Therapist used reflective listening and empathic responses as Client discussed current stressors and concepts related to treatment progress and ability to manage mental health symptoms. Therapist asked open ended questions to gather additional information and elicit client's thoughts about her progress since entering [facility] and request for discharge. Collaborated with client to identify strategies that can help her maintain success following discharge and discussed options regarding counseling and employment services post discharge. Provided support by using active listening and validating emotions. Client Response:: Client willing to come in early to meet with this therapist prior to group, as previously established. She was quiet upon meeting and indicated feeling both exhausted and upset. Client went on to share feeling as though she would no longer be able to remain in the IOP program due to feeling uncomfortable in the group setting. CLient willing to further process her concerns and indicated that she did not feel as though she could connect with others in the group. She expressed fearing she would be unable to make progress or open up to the group due to being worried about judgement from fellow participants. CLient and therapist discussed potential means for improving Client comfort levels in group setting; however, Client indicates wanting to pursue counseling services on an individual outpatient basis at this time. CLient reports knowing the importance of continuing with counseling on an outpatient basis and was receptive of referral information to [facility] and [facility] as Client would prefer to seek treatment outside of the [facility]. Client indicates plans to seek employment resources from [employer] at [facility] in order to find employment that would be less stressful and allow increased time to spend with her daughter. Client identified strategies to help her continue to make progress in managing mental health symptoms as including: Reducing unneccessary responsibilities, finding time to prioritize self-care, communicate thoughts and feelings with supports, and continue to apply reframing and thought challenging strategies. Risks/Concerns:: Client is receptive of following-up with aftercare services on an individual outpatient basis and is future oriented. She denies suicidal ideation, plan or intention to date, 04/10/18. Progress Toward Goals/Plan:: Client demonstrated progress with increased awareness of factors contributing to depressive and anxious symptoms as well as improved ability to begin identifying and challenging distorted thoughts. CLient reported feeling as though she is beginning to improve in her ability to reframe negative or anxious thoughts which has improved client ability to regulate emotions. She indicates ongoing difficulties in managing overwhelming stress which has resulted in continued difficulties symptoms of anxiety and depression. CLient did well to make progress in improved levels of awareness of her warning signs, triggers, and common distorted thoughts. Client agreeable to follow up with counseling on an individual outpatient basis. Time Stopped:: 08:59
== END 2018-04-20 23:59 ==
LOC: BHIOP 09:00
PROVIDERS: Visit Provider Psychiatry & Neurology Psychiatry
DX: F33.2 Major depressive disorder, recurrent severe without psychotic features (principal); F43.10 Post-traumatic stress disorder, unspecified; F41.9 Anxiety disorder, unspecified
CPT/HCPCS: H0035; H2012; H2020; 90832; 90834; 90837

== ENCOUNTER → 2018-10-23 21:50 | Outpatient (CLI) | payer OTHER, MEDICAID, SELFPAY ==
[2018-10-23 16:47] VITALS: BMI 23.0
[2018-10-23 21:57] LABS: Absolute Lymphocyte Count 2.15 X10^3/ul (0.83-4.51); Absolute Neutrophil Count 4.2 X10^3/uL (2.0-7.7); Basophil# 0.01 X10^3/uL; Basophil% 0.1 % (0-1); Eosinophil# 0.05 X10^3/uL; Eosinophils% 0.7 % (0-5); Hematocrit 45.4 % (37-47); Hemoglobin 14.9 g/dl (12.0-15.0); Lymphocyte # 2.15 X10^3/ul (4.0); Lymphocyte % 30.4 % (19-41); Mean Corp Hgb Conc 32.8 g/gl (32-36); Mean Corpuscular Hgb 27.5 pg (27.0-32.0); Mean Corpuscular Volume 83.9 fL (81-99); Mean Platelet Vol. 10.3 fl (6.2-12.0); Monocyte# 0.67 X10^3/uL; Monocyte% 9.5 % (0-10); Neutrophil # 4.18 X10^3/uL (2.7-7.7); Neutrophil % 59.2 % (47-70); Platelet Count 305 K/mm3 (150-450); RBC Distribution Width CV 13.8 % (11.6-14.6); Red Blood Count 5.41 M/mm3 (4.2-5.4); White Blood Count 7.1 K/mm3 (4.4-11.0)
[2018-10-23 21:59] LABS: POSITIVE COUNT NO; POSITIVE DIFFERENTIAL NO; POSITIVE MORPHOLOGY NO
[2018-10-23 22:07] LABS: AST(SGOT) 24 U/L (15-37); Alanine Aminotransfer ALT/SGPT 26 U/L (13-56); Alkaline Phosphatase 53 U/L (45-117); Amylase 87 U/L (25-115); Anion Gap 5 (5-15); BUN 16 mg/dL (7-18); BUN/Creat Ratio 19.6 RATIO (10-20); Calcium,Total 8.7 mg/dL (8.5-10.1); Chloride 106 mmol/L (98-107); Creatinine, Serum 0.82 mg/dL (0.55-1.02); EST Glomerular Filtration Rate 93 mL/min (>60); Est Glom Filt Rate - Afr Amer 113 mL/min (>60); Glucose 92 mg/dL (74-106); Potassium 4.1 mmol/L (3.5-5.1); Sodium Level 139 mmol/L (136-145)
== END ==
PROVIDERS: Family Provider Nurse Practitioner; PCP Nurse Practitioner; Referring Provider Nurse Practitioner; Visit Provider Nurse Practitioner
DX: R10.84 Generalized abdominal pain (principal); R11.2 Nausea with vomiting, unspecified
CPT/HCPCS: 80053; 82150; 85025

== ENCOUNTER → 2019-02-11 22:46 | Outpatient (CLI) | payer OTHER, SELFPAY ==
[2019-02-11 20:50] VITALS: BMI 23.0
[2019-02-11 23:06] LABS: Internal QC Validated? YES +Cl - CLEAR BKGD; Pregnancy, Serum, hCG Quali. NEGATIVE Negative
== END ==
PROVIDERS: Family Provider Nurse Practitioner; PCP Nurse Practitioner; Referring Provider Nurse Practitioner; Visit Provider Nurse Practitioner
DX: Z32.00 Encounter for pregnancy test, result unknown (principal)
CPT/HCPCS: 84703